=== PATIENT | male | born 1980 | race Caucasian/White ===

== ENCOUNTER 2017-05-02 20:57 | Emergency (ER) | payer MEDICARE ==
[2017-05-02 21:40] LABS: ADD MAN DIFF? NO
[2017-05-02 21:44] LABS: BASO # 0.1 x10^3/uL (0.0-0.2); BASO % 1 % (0-3); EOS # 0.2 x10^3/uL (0.0-0.7); EOS % 2 % (0-3); HEMATOCRIT 49.3 % (39.0-53.0); HEMOGLOBIN 16.6 g/dL (13.0-17.5); LYMPH # 2.7 x10^3/uL (1.0-4.8); LYMPH % 24 % (24-48); MEAN CORPUSCULAR HEMOGLOBIN 30 pg (25-35); MEAN CORPUSCULAR HGB CONC 34 g/dL (31-37); MEAN CORPUSCULAR VOLUME 88 fL (79-100); MONO # 0.9 x10^3/uL (0.0-1.1); MONO % 8 % (0-9); NEUT # 7.5 x10^3uL (1.8-7.7); NEUT % 66 % (31-73); PLATELET COUNT 323 x10^3/uL (140-400); RED BLOOD COUNT 5.62 x10^6/uL (4.30-5.70); RED CELL DISTRIBUTION WIDTH 13.1 % (11.5-14.5); WHITE BLOOD COUNT 11.3 x10^3/uL (4.0-11.0)
[2017-05-02 21:55] LABS: ANION GAP 12 (6-14); BLOOD UREA NITROGEN 8 mg/dL (8-26); BUN/CREATININE RATIO 6 (6-20); CALCIUM 9.7 mg/dL (8.5-10.1); CARBON DIOXIDE 28 mmol/L (21-32); CHLORIDE 101 mmol/L (98-107); CREATININE 1.4 mg/dL (0.7-1.3); GFR 57.7; GLUCOSE 99 mg/dL (70-99); POTASSIUM 3.8 mmol/L (3.5-5.1); SODIUM 141 mmol/L (136-145)
[2017-05-02] MEDS ORDERED: CONTRAST GIVEN MC (22:00)
[2017-05-02 22:01] LABS: ALBUMIN 3.9 g/dL (3.4-5.0); ALK PHOS 74 U/L (46-116); ALT (SGPT) 17 U/L (16-63); AST (SGOT) 19 U/L (15-37); LIPASE 101 U/L (73-393); TOTAL BILIRUBIN 0.3 mg/dL (0.2-1.0)
[2017-05-02] MEDS: PANTOPRAZOLE IV PUSH 40 MG VIAL. IVP (22:09)
[2017-05-02] MEDS: KETOROLAC 30 MG/ML INJ. IV (22:09)
[2017-05-02] MEDS: HYOSCYAMINE 0.125 MG TAB.RAPDIS PO (22:09)
[2017-05-02] MEDS: IV NORMAL SALINE 1000ML BAG 1,000 ML IV (22:09)
[2017-05-02] MEDS: IOHEXOL 300 MG/ML 100ML VIAL. IV (22:29)
[2017-05-02] MEDS: LIDO:MAALOX:DONNATAL 1:1:1 15 ML SINGLE DOSE SWSW (23:56)
== END 2017-05-03 00:02 | disposition home or self-care (01) ==
LOC: ER 05-03 00:02
DX: K29.70 Gastritis, unspecified, without bleeding (principal); N28.9 Disorder of kidney and ureter, unspecified; Z87.11 Personal history of peptic ulcer disease; F17.200 Nicotine dependence, unspecified, uncomplicated; Z88.0 Allergy status to penicillin; Z88.5 Allergy status to narcotic agent
CPT/HCPCS: 36415; 74177; 80053; 83690; 85025; 96361; 96374; 96375; 99285-25; C9113; J1885; J7030; Q9967